=== PATIENT | female | born 1955 | race Caucasian/White ===

== ENCOUNTER → 2017-11-17 | Outpatient (CLI) | payer BC, OTHER | LOC: RAD 11:08 | DX: Z12.31 Encounter for screening mammogram for malignant neoplasm of breast (principal) ==

== ENCOUNTER → 2018-12-24 | Outpatient (CLI) | payer BC, OTHER | LOC: BC 13:50 | DX: Z12.31 Encounter for screening mammogram for malignant neoplasm of breast (principal) ==

== ENCOUNTER 2019-02-19 09:26 | Day surgery (SDC) | payer BC, OTHER ==
[~2019-02-19] VITALS: Ht 152.4 cm; Wt 82.1 kg
--- NOTE | ~2019-02-19 | O ---
[facility] [place] [address] OPERATIVE REPORT Name: ADITYA SOOD Room #: 150-5 [facility] M.R.#: [id number] Admission: 02/19/19 Attend Phys: Dandy Cadet MD Discharge: Date of : 55 Report #: [id number] THIS REPORT FOR: //name// CC: Viry Cadet DATE OF SERVICE: 02/19/2019 PREOPERATIVE DIAGNOSIS: Right axillary lump. POSTOPERATIVE DIAGNOSIS: Sebaceous cyst, right axilla. OPERATIVE PROCEDURE DONE: Excision of sebaceous cyst, right axilla. OPERATING SURGEON: Dandy Cadet MD INDICATIONS FOR THE PROCEDURE: The patient is a 63-year-old female who presented with a lump in the right axilla, which has been causing increasing discomfort. The patient has a history of breast cancer. The patient was advised excision of the same. DESCRIPTION OF PROCEDURE: After explaining to the patient in detail, an informed consent was obtained. The patient was identified in the preoperative holding area. The patient was transferred to the operating room and was placed in supine position. After induction of anesthesia, the right axilla was prepped and draped in a sterile fashion. Approximately about 5 mL of Marcaine with epinephrine was injected circumferentially around this incision and through a transverse incision measuring approximately about 2 cm. The sebaceous cyst was identified and was dissected from the surrounding structures and the sebaceous cyst was then excised. The wound was thoroughly irrigated and was then closed in layers using 2-0 Vicryl for the subcutaneous tissue and skin was closed with 4-0 Monocryl for all the incisions. Dermabond was applied. The patient was stable at the end of the procedure. The patient was awoken from anesthesia and was transferred to the recovery room in stable condition. ESTIMATED BLOOD LOSS: Minimal. CONDITION OF THE PATIENT: Stable. FLUIDS GIVEN: Per anesthesia notes. SPECIMEN SENT: Sebaceous cyst. [facility] [address] [place] [address] OPERATIVE REPORT Name: ADITYA SOOD Room #: 150-5 [facility]..#: [id number] Admission: 02/19/19 Attend Phys: Dandy Cadet MD Discharge: Date of : 55 Report #: [id number] COMPLICATIONS: None. By: [id number] Dandy Cadet MD /nt
[~2019-02-19 09:26] MED LIST: ASPIR 8181 MG PO; JANUVIA100 MG PO; LEVEMIR FL100 UNIT/2 SUBQ; NORVASC5 MG PO; TOLTERODINE TART4 MG PO
[2019-02-19 09:45] VITALS: BP 133/79
--- NOTE | 2019-02-19 13:45 | EKG ---
[address] [place] [address] ELECTROCARDIOGRAM REPORT Name: ADITYA SOOD Room #: 150-5 [facility]#: [id number] Admission: 02/19/19 Attend Phys: Dandy Cadet MD Discharge: Date of : 55 Report #: [id number] THIS REPORT FOR: //name// [facility] Test Date: 2019-02-19 Test Time: 09:54:25 Pat Name: ADITYA OSOD Department: Room: 150 5 Gender: F Receiving Dock Checker: JAVIER : 1955 Requested By: Dandy Cadet Order Number: [id number] MD: Varghese Zarco Measurements Intervals [place] Rate: 133 P: NC: QRS: 34 QRSD: 87 T: 45 QT: 345 QTc: 514 Interpretive Statements Atrial fibrillation Low voltage, extremity and precordial leads Nonspecific repol abnormality, lateral leads No previous ECG available for comparison Electronically Signed On 02-19-2019 13:45:21 CDT by Varghese Zarco [email or web address] <ELECTRONICALLY SIGNED> By: Varghese Zarco MD 02/19/19 1345 [id number] Varghese Zarco MD /KENNEDI
--- NOTE | 2019-02-19 15:47 | 2DMMODE ---
[facility] [place] [address] 2 D/M-MODE ECHOCARDIOGRAM Name: ADITYA SOOD Room #: 150-5 [facility]#: [id number] Admission: 02/19/19 Attend Phys: Dandy Cadet MD Discharge: Date of : 55 Date of Service: 02/19/19 1546 Report #: [id number] THIS REPORT FOR: //name// APPROVED REPORT Study performed: 02/19/2019 15:20:31 EXAM: Comprehensive 2D, Doppler, and color-flow Echocardiogram Patient Location: PACU Status: routine BSA: 1.79 HR: 98 bpm BP: 133/79 mmHg Rhythm: Atrial Fibrillation Other Information Study Quality: Technically Difficult Indications Atrial Fibrillation RVR. Hx: HTN, HLP, DM, obesity. 2D Dimensions RVDd: 33.42 mm IVSd: 10.67 (7-11mm) LVOT Diam: 18.71 (18-24mm) LVDd: 34.88 mm PWd: 9.97 (7-11mm) Ascending Ao: 27.17 (22-36mm) LVDs: 24.10 (25-40mm) Aortic Root: 25.64 mm Volumes Left Atrial Volume (Systole) Single Plane 4CH: 35.39 mL Single Plane 2CH: 34.29 mL LA ESV Index: 22.00 mL/m2 Aortic Valve AoV Peak Polo.: 1.67 m/s AO Peak Gr.: 11.18 mmHg LVOT Max P.30 mmHg LVOT Max V: 0.91 m/s ELLY Vmax: 1.49 cm2 Mitral Valve MV Decel. Time: 168.76 ms [facility] [place] [employer] [place] [address] 2 D/M-MODE ECHOCARDIOGRAM Name: ADITYA SOOD Room #: 150-[address] [place] [address].#: [id number] Admission: 02/19/19 Attend Phys: Dandy Cadet MD Discharge: Date of : 55 Date of Service: 02/19/19 1546 Report #: [id number] E Max Polo.: 1.13 m/s Pulmonary Valve PV Peak Polo.: 0.71 m/s PV Peak Gr.: 2.04 mmHg Tricuspid Valve TR Peak Polo.: 2.22 m/s RAP Estimate: 5.00 mmHg TR Peak Gr.: 19.79 mmHg PA Pressure: 25.00 mmHg Left Ventricle The left ventricle is normal size. There is normal LV segmental wall motion. There is normal left ventricular wall thickness. Left ventricular systolic function is normal. LVEF is 60%. This study is not technically sufficient to allow evaluation of the LV diastolic function due to atrial fibrillation. Right Ventricle The right ventricle is normal size. The right ventricular systolic function is normal. Atria The left atrium size is normal. The right atrium size is normal. Aortic Valve The aortic valve is normal in structure. No aortic regurgitation is present. There is no aortic valvular stenosis. Mitral Valve The mitral valve is normal in structure. Trace mitral regurgitation. Tricuspid Valve The tricuspid valve is normal in structure. Mild tricuspid regurgitation. Estimated PAP is 25mmHg. Pulmonic Valve The pulmonary valve is normal in structure. Trace pulmonic regurgitation. Great Vessels The aortic root is normal in size. The ascending aorta is normal in size. IVC is normal in size and collapses >50% with inspiration. [facility] [place] [place] [address] 2 D/M-MODE ECHOCARDIOGRAM Name: ADITYA SOOD Room #: 150-5 [facility].R.#: [id number] Admission: 02/19/19 Attend Phys: Dandy Cadet MD Discharge: Date of : 55 Date of Service: 02/19/19 1546 Report #: [id number] Pericardium Small pericardial effusion. <Conclusion> The left ventricle is normal size. There is normal left ventricular wall thickness. Left ventricular systolic function is normal. The right ventricle is normal size. The left atrium size is normal. The right atrium size is normal. The aortic valve is normal in structure. Trace mitral regurgitation. Mild tricuspid regurgitation. Estimated PAP is 25mmHg. <ELECTRONICALLY SIGNED> By: Varghese Zarco MD 02/19/19 1546 [id number] Varghese Zarco MD /CINTHIA
[2019-02-19 16:45] VITALS: BP 133/79
[2019-02-19 17:23] LABS: CALCIUM 9.1 mg/dL (8.5-10.1); CREATININE 0.9 mg/dL (0.6-1.0)
--- NOTE | 2019-02-23 13:07 | PATH ---
[facility] [address] [place] [address] PATHOLOGY RPT PROCEDURE Name: ADITYA SHELDON Room #: DEP [facility] M.R.#: [id number] Admission: 02/19/19 Date of : 55 Discharge: 02/19/19 Report #: [id number] Path Case #: [id number] [facility] Accession Number: [id number] . 01 Material submitted: . axillary tail of breast - RIGHT AXILLARY MASS. Modifiers: right . 01 Clinical history: . Right axillary mass. . 02 Diagnosis: Soft tissue, right axilla, excision: - Epidermal inclusion cyst with focal rupture and associated foreign body giant cell reaction. (SKM:pit; 02/23/2019) QTP/02/23/2019 . 02 Electronically signed: . Chance Spivey MD, Pathologist NPI- [id number] . 01 Gross description: . Received in formalin labeled "Aditya Sheldon, right axillary mass" is a previously opened brownlee-white cystic structure measuring 3.1 x 1.8 x 1.5 cm. The cyst contains brownlee-white grumous material. Director Of Maternity Services sections are submitted in cassette A1. [place] [place] SYC/SYC . 02 Pathologist provided ICD-10: L72.0 . 02 CPT . 034617 Specimen Comment: A courtesy copy of this report has been sent to Specimen Comment: [phone], . Specimen Comment: Report sent to / DR GUNN Performed at: [address] [facility], [place], [place] [id number] MD Faizan Whyte MD Phone: [phone] Performed at: [address] [id number] MD Anahi Rosales MD Phone: [phone]
== END 2019-02-19 17:35 | disposition home or self-care (01) ==
LOC: OR 09:26 → TBA 09:27 → OR 11:16
PROVIDERS: Nurse Practitioner
DX: I08.1 Rheumatic disorders of both mitral and tricuspid valves (principal); I48.91 Unspecified atrial fibrillation; L72.0 Epidermal cyst; I10 Essential (primary) hypertension; E11.9 Type 2 diabetes mellitus without complications; E78.5 Hyperlipidemia, unspecified; E78.00 Pure hypercholesterolemia, unspecified; E66.09 Other obesity due to excess calories; Z85.3 Personal history of malignant neoplasm of breast; Z98.51 Tubal ligation status; Z98.890 Other specified postprocedural states; Z83.3 Family history of diabetes mellitus; Z87.891 Personal history of nicotine dependence; Z79.82 Long term (current) use of aspirin; Z68.35 Body mass index [BMI] 35.0-35.9, adult; Z90.49 Acquired absence of other specified parts of digestive tract; Z79.4 Long term (current) use of insulin; Z79.01 Long term (current) use of anticoagulants
CPT/HCPCS: 50010; 50101; 50386; 50417; 54118; 56524; 56526; 62110; 62850; 70005

== ENCOUNTER → 2019-02-24 | Outpatient (CLI) | payer BC, OTHER | LOC: NUC 07:51 | DX: I48.91 Unspecified atrial fibrillation (principal); I10 Essential (primary) hypertension; Z87.891 Personal history of nicotine dependence; E11.9 Type 2 diabetes mellitus without complications ==

== ENCOUNTER → 2020-04-13 | Outpatient (CLI) | payer OTHER | LOC: CAT 15:04 | PROVIDERS: ATTEND Internal Medicine Cardiovascular Disease | DX: Z13.6 Encounter for screening for cardiovascular disorders (principal); I25.10 Atherosclerotic heart disease of native coronary artery without angina pectoris; E78.00 Pure hypercholesterolemia, unspecified ==

== ENCOUNTER → 2020-10-24 | Outpatient (CLI) | payer BC, OTHER | LOC: SJCVCIMAG 09-15 07:24 | PROVIDERS: ATTEND Internal Medicine Cardiovascular Disease | DX: I08.2 Rheumatic disorders of both aortic and tricuspid valves (principal); I10 Essential (primary) hypertension; E78.5 Hyperlipidemia, unspecified; E11.9 Type 2 diabetes mellitus without complications ==